=== PATIENT | female | born 1980 | race Hispanic/Latino ===

== ENCOUNTER 2020-08-02 08:07 | Outpatient (CLI) | payer OTHER ==
--- NOTE | 2020-08-02 09:24 | Mammography Report ---
DIGITAL SCREENING MAMMOGRAM WITH CAD, 08/02/2020 CLINICAL INFORMATION / INDICATION: Routine screening mammography. SCREENING MAMMOGRAM TECHNIQUE: Digital bilateral 2D mammography was obtained in the craniocaudal and mediolateral obliqu e projections. This examination was interpreted with the benefit of Computer-Aided Detection analysis . COMPARISON: Baseline. FINDINGS: Breast Density: The breasts are heterogeneously dense, which may obscure small masses. No dominant mass, suspicious calcifications, or architectural distortion in the right breast. There is a 7 mm nodular density in the left breast near the 12:00 position 6 cm from the nipple in th e middle to posterior depth. There are a few benign calcifications in the left breast. IMPRESSION: Small nodular density in the left superior breast. Left breast ultrasound is recommended for initial evaluation. Spot compression views could be performed if necessary. Follow up recommendation: Ultrasound BI-RADS Category 0: Incomplete. Needs additional imaging evaluation and/or prior mammograms for dalila garrido. A "normal" or negative report should not discourage follow up or biopsy of a clinically significant f inding. A written summary of these findings will be mailed to the patient. The patient will be entered into a mammography reporting system which will generate a reminder letter for the patient's next appointmen t at the appropriate interval. The [employer] recommends yearly mammograms starting at age 40 and continuing as l ellie as a woman is in good health. Breast MRI is recommended for women with an approximate 20-25% or greater lifetime risk of breast cancer, including women with a strong family history of breast or ova katie cancer or who have been treated for Hodgkin's disease. Signer Name: Ronald Hackett MD Signed: 08/02/2020 9:20 AM Workstation Name: [id number]
== END 2020-08-02 08:08 | disposition home or self-care (01) ==
LOC: SPVWC 08:07
PROVIDERS: ATTEND Nurse Practitioner Women's Health
DX: Z12.31 Encounter for screening mammogram for malignant neoplasm of breast (principal); N63.25 Unspecified lump in the left breast, overlapping quadrants
CPT/HCPCS: 77067

== ENCOUNTER 2020-08-22 08:29 | Outpatient (CLI) | payer OTHER ==
--- NOTE | 2020-08-22 10:03 | Ultrasound Report ---
ULTRASOUND BREAST LEFT LIMITED, 08/22/2020 CLINICAL INFORMATION / INDICATION: Left breast nodule on screening mammography.. TECHNIQUE: Targeted ultrasound evaluation was performed of the area of interest. COMPARISON: Bilateral mammography 08/02/20. FINDINGS: There is a 1.7 cm irregular ovoid hypoechoic solid nodule at the 12:00 position 7 cm from the nipple in the area of the mammographically detected nodule. No posterior features are seen. There is minimal peripheral vascularity on Doppler exam. There is an additional adjacent 6.5 mm rounded solid nodule at the 12:00 position 6 cm from the nipple without posterior features or internal vascularity on Dopp ler exam. There is an incidental 5.1 mm ovoid simple cyst at the 11:30 position 6 cm from the nipple. IMPRESSION: 2 adjacent solid nodules in the left breast at the 12:00 position in the area of the mamm ographically detected nodularity. Biopsy of both lesions is recommended under ultrasound guidance. Follow up recommendation: Surgical consult BI-RADS Category 4: Suspicious for Malignancy. A normal or "negative" report should not preclude biopsy or follow-up of a clinically suspicious find ing. Signer Name: Ronald Hackett MD Signed: 08/22/2020 9:58 AM Workstation Name: [place] [facility] [email or web address]
== END 2020-08-22 08:30 | disposition home or self-care (01) ==
LOC: MAMMO 08:29
PROVIDERS: ATTEND Nurse Practitioner Women's Health
DX: N63.21 Unspecified lump in the left breast, upper outer quadrant (principal)

== ENCOUNTER 2020-09-16 12:20 | Outpatient (CLI) | payer OTHER ==
--- NOTE | 2020-09-18 14:33 | Ultrasound Report ---
Procedure: Ultrasound-guided left breast nodule biopsy, Clinical information/indication: Abutting left-sided breast nodules versus a single lobulated nodule at the 12:00 position Comparison: Ultrasound from 08/14/2020 Procedure: The benefits, indications and risks were discussed with the patient including but not limi wesley to bleeding, infection, hematoma formation, and inadequate tissue sampling. The patient agreed to proceed with both verbal and written consent. A timeout procedure was performed using 2 patient iden tifiers. The breast was prepped and draped in the usual sterile fashion. Lidocaine was used for local anesthes ia. Under direct ultrasound guidance, 3 12-gauge core samples were obtained of the left breast nodule . A biopsy marker was then placed. Biopsy device was removed and hemostasis achieved with manual pres sure. A sterile dressing was applied to the skin. The patient tolerated the procedure without difficulty. No complications were encountered. Specimens were sent to pathology. The patient was then sent for a limited mammogram to confirm clip placement. IMPRESSION: 1. Technically successful left breast biopsy. 2. Post-procedure mammogram demonstrates satisfactory clip placement. An addendum will be issued once pathology returns on this procedure. Signer Name: Cesar Mixon MD Signed: 09/18/2020 2:29 PM Workstation Name: [id number]
== END 2020-09-16 12:21 | disposition home or self-care (01) ==
LOC: US 12:20
PROVIDERS: ATTEND Surgery
DX: N60.12 Diffuse cystic mastopathy of left breast (principal); N63.21 Unspecified lump in the left breast, upper outer quadrant; R92.1 Mammographic calcification found on diagnostic imaging of breast; Z79.899 Other long term (current) drug therapy; Z72.89 Other problems related to lifestyle; Z83.3 Family history of diabetes mellitus; Z82.49 Family history of ischemic heart disease and other diseases of the circulatory system
CPT/HCPCS: 88305

== ENCOUNTER 2021-03-06 09:49 | Outpatient (CLI) | payer OTHER ==
--- NOTE | 2021-03-06 11:42 | Ultrasound Report ---
LEFT DIGITAL DIAGNOSTIC MAMMOGRAM WITH CAD , 03/06/2021 LEFT LIMITED BREAST ULTRASOUND CLINICAL INFORMATION / INDICATION: This is a six-month follow-up left mammogram and ultrasound follow ing benign biopsy left breast. TECHNIQUE: Digital left mammographic imaging was performed. Limited ultrasound was performed. This ex amination was interpreted with the benefit of Computer-Aided Detection (CAD) analysis. COMPARISON: 09/16/2020, 08/02/2020 FINDINGS: Breast Density: The breasts are heterogeneously dense, which may obscure small masses. MAMMOGRAPHIC FINDINGS: No dominant mass, suspicious calcifications, or architectural distortion in th e left breast. Previously seen nodular density in the superior left breast is less prominent. Biopsy clip at 12:00, posterior depth, is noted to be adjacent to this density. ULTRASOUND FINDINGS: Targeted ultrasound evaluation was performed of the area of interest. There co ntinues to be a 1.2 cm oval solid mass in the 12:00 position, 6 cm from nipple, measuring 1.2 x 0.5 c m. A biopsy clip is seen adjacent to this mass. Additionally, there is a round hypoechoic mass measur ing 4 mm in the 12:00 position, 7 cm from nipple that is felt to more than likely correlates to the n odular density seen mammographically. IMPRESSION: Probably benign findings. 1. Previously noted nodular density in the left breast on screening mammogram from 08/02/2020 is less p rominent on today's exam. The biopsy clip is located 1 cm superior and lateral to this density. 2. Small hypoechoic mass at 12:00, 7 cm from nipple, is present and may account for the original mamm ographic abnormality. I would recommend 6 month follow-up ultrasound for this 4 mm mass. This can be performed when the patient is due for her next screening mammogram in July 2021. Follow up recommendation: Short term follow up in 6 months. BI-RADS Category 3: Probably Benign. Followup in 6 months. A "normal" or negative report should not discourage follow up or biopsy of a clinically significant f inding. A written summary of these findings will be mailed to the patient. The patient will be entered into a mammography reporting system which will generate a reminder letter for the patient's next appointmen t at the appropriate interval. According to the [employer], yearly mammograms are recommended starting at age 40 and continuing as long as a woman is in good health. Breast MRI is recommended for women with an prosper roximately 20-25% or greater lifetime risk of breast cancer, including women with a strong family his tory of breast or ovarian cancer and women who have been treated for Hodgkin's disease. Signer Name: Susanne Moore MD Signed: 03/06/2021 11:37 AM Workstation Name: [employer]
== END 2021-03-06 09:50 | disposition home or self-care (01) ==
LOC: SPVWC 09:49
PROVIDERS: ATTEND Surgery
DX: N63.24 Unspecified lump in the left breast, lower inner quadrant (principal); R92.8 Other abnormal and inconclusive findings on diagnostic imaging of breast